=== PATIENT | male | born 1985 | race African-American/Black ===

== ENCOUNTER 2016-09-21 09:34 | Emergency (ER) | payer OTHER ==
[~2016-09-21 09:34] MED LIST: NYQUIL D COLD295 M1
== END 2016-09-21 09:35 | disposition home or self-care (01) ==
LOC: SED 09:34
DX: B34.9 Viral infection, unspecified (principal); R03.0 Elevated blood-pressure reading, without diagnosis of hypertension
CPT/HCPCS: 99282

== ENCOUNTER 2016-11-23 20:27 | Emergency (ER) | payer OTHER | END 2016-11-23 21:52 | disposition home or self-care (01) | LOC: SED 20:27 | DX: L23.7 Allergic contact dermatitis due to plants, except food (principal) | CPT/HCPCS: 96372; 99282; J3301 ==

== ENCOUNTER 2016-12-03 15:56 | Emergency (ER) | payer OTHER | END 2016-12-03 16:31 | disposition home or self-care (01) | LOC: SED 15:56 | DX: I10 Essential (primary) hypertension (principal) | CPT/HCPCS: 99283 ==

== ENCOUNTER 2016-12-06 15:04 | Emergency (ER) | payer OTHER | END 2016-12-06 15:56 | disposition home or self-care (01) | LOC: SED 15:04 | DX: L03.311 Cellulitis of abdominal wall (principal); I10 Essential (primary) hypertension | CPT/HCPCS: 99284 ==